=== PATIENT | female | born 1980 ===

== ENCOUNTER 2022-07-11 10:11 | Outpatient (CLI) | payer OTHER, SELFPAY ==
--- NOTE | 2022-07-11 10:00 | CRLHL7_ITS ---
For Patients: As a result of the Century Cures Act, medical imaging exams and procedure reports are released immediately into your electronic medical record. You may view this report before your referring provider. If you have questions, please contact your health care provider. Indication: sinusitis Technique: Performed without IV contrast Comparison: None available Findings: Frontal sinuses: Minimal mucosal thickening within the inferior frontal sinuses bilaterally. Ethmoid sinuses: Small mucous retention cyst within the left anterior ethmoid sinus measuring 6 millimeters. Clear right ethmoid sinus. Mild mucous within the left posterior ethmoid sinus. Maxillary sinuses: Mucosal thickening within the inferior maxillary sinuses bilaterally. There is a mucous retention cyst within the left maxillary sinus measuring 1.5 cm. The maxillary sinus drainage pathways are patent on both sides. Sphenoid sinuses: Clear, including both sphenoethmoidal recesses. Nasal Cavity: Leftward deviation of the nasal septum. Janee bullosa of both middle turbinates. No TMJ abnormalities identified. The visualized portions of the orbits, intracranial contents and upper soft tissue neck are grossly negative. Impression: 1. Bilateral sinus disease. 2. Leftward curvature nasal septum. Please note that all CT scans at this facility use dose modulation, iterative reconstruction, and/or weight-based dosing when appropriate to reduce radiation dose to as low as reasonably achievable. Dictated by Aroldo Hawkins MD @ 07/11/2022 10:58:30 AM (Electronically Signed)
== END 2022-07-11 10:12 | disposition home or self-care (01) ==
LOC: CT 10:11
PROVIDERS: Visit Provider Otolaryngology
DX: J32.9 Chronic sinusitis, unspecified (principal); J34.2 Deviated nasal septum
CPT/HCPCS: 70486

== ENCOUNTER 2023-08-08 10:02 | Outpatient (CLI) | payer OTHER, SELFPAY | END 2023-08-08 10:03 | disposition home or self-care (01) | PROVIDERS: PCP Family Medicine; Visit Provider Family Medicine | DX: E53.8 Deficiency of other specified B group vitamins (principal); D64.9 Anemia, unspecified; Z13.29 Encounter for screening for other suspected endocrine disorder; Z13.228 Encounter for screening for other metabolic disorders | CPT/HCPCS: 80053; 80061; 82306; 82607; 82728; 83735; 84443 ==

== ENCOUNTER 2023-10-31 08:12 | Outpatient (CLI) | payer OTHER, SELFPAY ==
--- NOTE | 2023-10-31 08:15 | MM_ITS ---
Patient: JOSE CARLOS PLAZA Facility:?[facility] Patient ID:?[id number] Site Patient ID:?[id number] Site :?[id number] Study:?XRay-Breast Bilateral 3D W/CAD-10/31/2023 10:19:00 AM Ordering Physician:Giovanni Final Report: BILATERAL SCREENING MAMMOGRAM WITH COMPUTER-AIDED DETECTION AND TOMOSYNTHESIS TECHNIQUE: CC and MLO views were obtained. These mammographic images have been obtained using full-field digital technique. These mammographic images were interpreted with the benefit of computer-aided detection. Breast Tomosynthesis was used in this interpretation. COMPARISON FILM: 07/03/22, 03/03/21. FINDINGS: The breasts are extremely dense, which lowers the sensitivity of mammography IMPRESSION: There is no radiographic evidence for malignancy. ASSESSMENT: BI-RADS Category 1: Negative RECOMMENDATION: Routine screening mammogram in 1 year. A lay language report of this examination will be provided to the patient. Aroldo Hawkins M.D. Diagnostic Radiologist [email or web address]& Transcribed: 8:41 p.m. VANE/Dictated by: Aroldo Hawkins MD @ 11/14/2023 10:47:00 AM (Electronic Signature)
== END 2023-10-31 08:13 | disposition home or self-care (01) ==
LOC: MAMMO 08:12
PROVIDERS: PCP Family Medicine; Visit Provider Family Medicine
DX: Z12.31 Encounter for screening mammogram for malignant neoplasm of breast (principal); R92.2 Inconclusive mammogram
CPT/HCPCS: 77063; 77067

== ENCOUNTER 2024-07-09 08:52 | Outpatient (CLI) | payer OTHER, SELFPAY | END 2024-07-09 08:53 | disposition home or self-care (01) | PROVIDERS: PCP Internal Medicine; Visit Provider Internal Medicine | DX: R25.3 Fasciculation (principal); R53.83 Other fatigue | CPT/HCPCS: 80053; 82306; 82607; 84443 ==

== ENCOUNTER 2024-08-06 15:08 | Outpatient (CLI) | payer OTHER, SELFPAY ==
--- NOTE | 2024-08-06 15:30 | CRLHL7_ITS ---
For Patients: As a result of the Century Cures Act, medical imaging exams and procedure reports are released immediately into your electronic medical record. You may view this report before your referring provider. If you have questions, please contact your health care provider. INDICATION: Fasciculations. TECHNIQUE: Brain MRI with and without contrast. 15 cc Dotarem gadolinium based contrast administered. COMPARISON: None. FINDINGS: No evidence of acute ischemia. No evidence of acute or chronic intracranial blood products. No mass or pathologic intracranial enhancement. Scattered FLAIR hyperintense foci within the supratentorial white matter. No hydrocephalus or extra-axial collections. The pituitary gland, parasellar structures and optic chiasm are normal. Posterior fossa is normal. All the major intracranial vascular structures demonstrate normal flow-related signal. The orbital contents are normal. No calvarial or skull base marrow signal abnormality. No obstructive sinus disease. No extracranial soft tissue findings. IMPRESSION: 1. No acute infarction or other acute intracranial pathology. 2. No mass or pathologic intracranial enhancement. 3. Multiple nonspecific FLAIR hyperintensity scattered within the supratentorial white matter. Diagnostic considerations include chronic small-vessel ischemic change, sequela of migraine headaches or old inflammation/demyelination. Dictated by Kalia Tripathi MD @ 08/07/2024 9:05:04 AM (Electronically Signed)
== END 2024-08-06 15:09 | disposition home or self-care (01) ==
LOC: MRI 15:09
PROVIDERS: PCP Internal Medicine; Visit Provider Internal Medicine
DX: R25.3 Fasciculation (principal)
CPT/HCPCS: 70553; A9575

== ENCOUNTER 2025-03-22 09:47 | Outpatient (CLI) | payer OTHER, SELFPAY ==
[2025-03-24 03:32] LABS: HPV Source Cervical
[2025-04-01 11:07] LABS: Pap Test Screened Manually Done
== END 2025-03-22 09:48 | disposition home or self-care (01) ==
PROVIDERS: PCP Internal Medicine; Visit Provider Obstetrics & Gynecology
DX: E53.8 Deficiency of other specified B group vitamins (principal); D64.9 Anemia, unspecified; R53.83 Other fatigue; Z12.4 Encounter for screening for malignant neoplasm of cervix; Z11.51 Encounter for screening for human papillomavirus (HPV)
CPT/HCPCS: 84439; 84443; 87624; 87625; 88141; 88142; 88175

== ENCOUNTER 2025-04-06 18:52 | Outpatient (CLI) | payer OTHER, SELFPAY ==
--- NOTE | 2025-04-06 19:00 | CRLHL7_ITS ---
For Patients: As a result of the Century Cures Act, medical imaging exams and procedure reports are released immediately into your electronic medical record. You may view this report before your referring provider. If you have questions, please contact your health care provider. INDICATION: BILATERAL SCREENING MAMMOGRAM, ASYMPTOMATIC 44 Y/O FEMALE COMPARISON: 10/31/2023, 07/03/2022, 03/03/2021 TECHNIQUE: Digital mammogram in CC and MLO projections including computer-aided detection (CAD) and tomosynthesis. BREAST COMPOSITION: The breasts are extremely dense, which lowers the sensitivity of mammography. FINDINGS: No suspicious findings. ASSESSMENT: BI-RADS 1 Negative RECOMMENDATION: Annual screening mammogram. A lay language report of this examination will be provided to the patient. Dictated by: Aroldo Hawkins MD @ 04/07/2025 10:23:44 (Electronically Signed)
== END 2025-04-06 18:53 | disposition home or self-care (01) ==
PROVIDERS: PCP Internal Medicine; Visit Provider Obstetrics & Gynecology
DX: Z12.31 Encounter for screening mammogram for malignant neoplasm of breast (principal); R92.343 Mammographic extreme density, bilateral breasts
CPT/HCPCS: 77063; 77067